=== PATIENT | male | born 1970 | race Caucasian/White ===

== ENCOUNTER 2024-07-14 17:59 | Emergency (ER) | payer SELFPAY | END 2024-07-14 18:53 | disposition home or self-care (01) | LOC: BURERS 17:59 | DX: I10 Essential (primary) hypertension (principal); F17.210 Nicotine dependence, cigarettes, uncomplicated | CPT/HCPCS: 93005; 99283 ==

== ENCOUNTER 2024-07-18 16:31 | Outpatient (CLI) | payer OTHER ==
[2024-07-18 17:00] LABS: Cardiac Risk 5.4 (Less than 4.5)
== END 2024-07-18 16:32 | disposition home or self-care (01) ==
LOC: BURLAB 16:31
PROVIDERS: ATTEND Nurse Practitioner Family
DX: I10 Essential (primary) hypertension (principal)
CPT/HCPCS: 36415; 80061